=== PATIENT | female | born 2000 | race Caucasian/White ===

== ENCOUNTER 2021-03-27 14:45 | Observation (INO) | END 2021-03-27 15:32 | disposition home or self-care (01) | LOC: 1NENULAB | PROVIDERS: ADMIT Obstetrics & Gynecology; ATTEND Obstetrics & Gynecology ==

== ENCOUNTER → 2021-05-21 20:30 | Observation (INO) ==
[2021-05-21 19:34] LABS: Bilirubin,Urine Negative (Negative); Blood,Urine Negative (Negative); Clarity,Urine Clear (Clear); Color,Urine Light-Yellow (Yellow); Glucose,Urine (UA) Normal (Normal); Ketones,Urine Negative (Negative); Leukocyte Esterase,Urine Negative (Negative); Nitrite,Urine Negative (Negative); PH,Urine 7.5 pH Units (5.0-8.0); Protein,Urine Negative (Neg-Trace); Specific Gravity,Urine 1.012 (1.010-1.025); Urobilinogen,Urine Normal (Normal)
[~2021-05-21 20:30] MED LIST: FLU Vac QV 21-22 (6Month+)/PF 0.5 ML SYRINGE IM ONE
== END | disposition home or self-care (01) ==
LOC: 1NENULAB
PROVIDERS: ADMIT Advanced Practice Midwife; ATTEND Advanced Practice Midwife

== ENCOUNTER 2021-07-08 03:42 | Inpatient (IN) ==
[2021-07-08] MEDS ORDERED: Naloxone 0.4 MG/ML INJ IVP PRN (04:13)
[2021-07-08] MEDS ORDERED: Famotidine 20 MG/2 ML VIAL IVP PRN (04:13)
[2021-07-08] MEDS ORDERED: *HR* Nalbuphine 10 MG/ML AMPUL IV PRN (04:13)
[2021-07-08] MEDS ORDERED: Ondansetron 4 MG/2 ML VIAL IVP PRN (04:13)
[2021-07-08] MEDS ORDERED: Azithromycin 500 MG in 0.9 % Sodium Chloride 250 ML IVPB PRN (04:13)
[2021-07-08] MEDS ORDERED: Metoclopramide 10 MG/2 ML VIAL IVP PRN (04:13)
[2021-07-08] MEDS ORDERED: Lidocaine 1% 20 ML MDV INFILT PRN (04:13)
[2021-07-08] MEDS ORDERED: Oxytocin 20 units/ LR 1000 mL 20 UNIT/1,000 ML BAG IVC SCH (04:15)
[2021-07-08 04:54] LABS: Amphetamine Screen,Urine Negative ng/mL (Cutoff=1000); Barbiturate Screen,Urine Negative ng/mL (Cutoff=200); Benzodiazepines Screen,Urine Negative ng/mL (Cutoff=200); Cannabinoid Screen,Urine Negative ng/mL (Cutoff = 50); Cocaine Screen,Urine Negative ng/mL (Cutoff= 300); Opiate Screen,Urine Negative ng/mL (Cutoff=300); Phencyclidine Screen,Urine Negative ng/mL (Cutoff=25)
[2021-07-08 04:57] LABS: Basophils # 0.1 K/mcL (0.0-0.2); Basophils % 0.5 %; Eosinophils # 0.2 K/mcL (0.0-0.6); Eosinophils % 1.9 %; Hematocrit 38.3 % (35.3-44.9); Hemoglobin 12.3 g/dL (11.5-15.4); Immature Granulocytes % 1.3 % (0-4); Mean Corpuscular HGB Conc 32.1 g/dL (31.6-35.5); Mean Corpuscular Hemoglobin 27.2 pg (28.0-33.3); Mean Corpuscular Volume 84.7 fL (83.0-100.0); Mean Platelet Volume 11.2 fL (9.4-12.4); Monocytes # 1.2 K/mcL (0.0-1.3); Monocytes % 12.6 %; Neutrophils # 6.3 K/mcL (1.6-8.9); Platelet Count 172 K/mcL (140-400); Red Blood Count 4.52 M/mcL (3.82-4.97); Segmented Neutrophils % 63.7 %; White Blood Count 9.8 K/mcL (4.3-11.1)
[2021-07-08 05:04] LABS: Alanine Aminotransferase 10 Units/L (7-52); Aspartate Amino Transferase 17 Units/L (13-39); BUN/Creatinine Ratio 14 (6-26); Blood Urea Nitrogen 8 mg/dL (6-20); Lactate Dehydrogenase 151 Units/L (140-271); Uric Acid 4.2 mg/dL (2.3-7.6); eGFR For African Americans > 60 (> 60); eGFR For Non-African Americans > 60 (> 60)
[2021-07-08 05:13] LABS: Creatinine,Urine 168 mg/dL; Protein/Creatinine Ratio,Urine 0.17 mg/mg (0.00-0.20)
[2021-07-08 05:20] LABS: Influenza A PCR Negative (Negative); Influenza B PCR Negative (Negative); Resp. Syncytial Virus PCR Negative (Negative)
[2021-07-08 05:21] LABS: SARS-CoV-2 by PCR (In House) Negative (Negative)
[2021-07-08] MEDS: Ringers Solution, Lactated 1,000 ML IVC SCH ×2 (05:44→13:57)
[2021-07-08] MEDS ORDERED: Epidural Premix (fent/bupiv) 110 ML EP SCH (10:45)
[2021-07-08] MEDS ORDERED: EPHEDrine 50 MG/ML VIAL IVP PRN (10:45)
[2021-07-08] MEDS ORDERED: *HR* FentaNYL (PF) 100 MCG/2 ML VIAL EP ONE (10:45)
[2021-07-08] MEDS ORDERED: Ropivacaine/PF 0.2% 20 ML VIAL ONE ×2 (18:40→22:52)
[2021-07-08] MEDS ORDERED: *HR* FentaNYL (PF) 100 MCG/2 ML VIAL ONE ×3 (18:40→23:32)
[2021-07-08] MEDS ORDERED: Famotidine 20 MG/2 ML VIAL IVP ONE (21:48)
[2021-07-08] MEDS ORDERED: Famotidine 20 MG/2 ML VIAL ONE (21:51)
[2021-07-08] MEDS ORDERED: *HR* Morphine Sulfate/PF 10 MG/10 ML AMPUL ONE (23:32)
[2021-07-08] MEDS ORDERED: EPHEDrine 50 MG/ML VIAL ONE (23:32)
[2021-07-08] MEDS ORDERED: Ondansetron 4 MG/2 ML VIAL ONE (23:35)
[2021-07-08] MEDS ORDERED: Ketorolac 30 MG/ML VIAL ONE (23:35)
[2021-07-08] MEDS ORDERED: Acetaminophen IV 1,000 MG/100 ML BAG IVPB ONE (23:36)
[2021-07-08] MEDS ORDERED: Ringers Solution, Lactated 1,000 ML ONE (23:52)
[2021-07-09] MEDS ORDERED: Promethazine 6.25 MG in Water for inj. (sterile) 20 ML IVPB PRN (00:51)
[2021-07-09] MEDS ORDERED: Ondansetron 4 MG/2 ML VIAL IVP PRN ×2 (00:51→05:41)
[2021-07-09] MEDS ORDERED: *HR* HYDROmorphone PF 0.5 MG/0.5 ML SYRINGE IVP PRN (00:51)
[2021-07-09] MEDS ORDERED: *HR* OxyCODONE Immed Rel 5 MG TABLET PO PRN ×2 (00:51→05:41)
[2021-07-09] MEDS ORDERED: Metoclopramide 10 MG/2 ML VIAL IVP PRN (05:41)
[2021-07-09] MEDS ORDERED: Oxytocin 20 units/ LR 1000 mL 20 UNIT/1,000 ML BAG IVC SCH (05:41)
[2021-07-09] MEDS ORDERED: Ketorolac 30 MG/ML VIAL IVP SCH (07:30)
[2021-07-09] MEDS ORDERED: Simethicone 80 MG TAB.CHEW PO SCH (09:00)
[2021-07-09] MEDS ORDERED: Prenatal Vit/FA 1 EACH TABLET PO SCH (09:00)
[2021-07-09] MEDS: Acetaminophen 325 MG TABLET PO SCH ×2 (09:43→15:42)
[2021-07-09] MEDS: Ibuprofen 600 MG TABLET PO SCH ×2 (13:30→20:01)
[2021-07-10] MEDS: Acetaminophen 325 MG TABLET PO SCH (01:55)
[2021-07-10 04:38] LABS: Basophils # 0.1 K/mcL (0.0-0.2); Basophils % 0.5 %; Eosinophils # 0.1 K/mcL (0.0-0.6); Eosinophils % 0.6 %; Hematocrit 31.7 % (35.3-44.9); Hemoglobin 10.3 g/dL (11.5-15.4); Immature Granulocytes % 0.8 % (0-4); Lymphocytes # 3.8 K/mcL (0.6-4.6); Mean Corpuscular HGB Conc 32.5 g/dL (31.6-35.5); Mean Corpuscular Hemoglobin 27.8 pg (28.0-33.3); Mean Corpuscular Volume 85.4 fL (83.0-100.0); Mean Platelet Volume 11.1 fL (9.4-12.4); Monocytes # 1.8 K/mcL (0.0-1.3); Monocytes % 10.4 %; Neutrophils # 11.3 K/mcL (1.6-8.9); Platelet Count 187 K/mcL (140-400); Red Blood Count 3.71 M/mcL (3.82-4.97); Red Cell Distribution Width 14.5 % (11.5-14.5); Segmented Neutrophils % 65.7 %; White Blood Count 17.2 K/mcL (4.3-11.1)
[2021-07-10 08:39] VITALS: BP 112/74; PULSE 73; TEMP 98.1; O2SAT 97
[2021-07-10] MEDS: Ibuprofen 600 MG TABLET PO SCH (08:53)
== END 2021-07-10 12:48 | disposition home or self-care (01) | DRG 540 ==
LOC: 1NENULAB 03:42 → 1NENUOBS 07-09 05:08
PROVIDERS: ADMIT Obstetrics & Gynecology; ATTEND Obstetrics & Gynecology